=== PATIENT | male | born 1945 ===

== ENCOUNTER 2019-07-24 09:43 | Outpatient (CLI) | payer OTHER ==
[~2019-07-24 09:43] MED LIST: CATAFLAM50 MG PO; CELEBREX200MG PO; NABUMETONE750 MG PO; NORFLEX100MG PO
== END 2019-07-24 12:37 | disposition home or self-care (01) ==
LOC: TOM 09:43
DX: M54.5 Low back pain (principal); M54.16 Radiculopathy, lumbar region; N18.3 Chronic kidney disease, stage 3 (moderate); I11.0 Hypertensive heart disease with heart failure; E11.9 Type 2 diabetes mellitus without complications; D64.89 Other specified anemias
CPT/HCPCS: 72148

== ENCOUNTER 2019-12-10 14:22 | Outpatient (CLI) | payer OTHER | END 2019-12-10 14:38 | disposition home or self-care (01) | LOC: TOM 14:22 | PROVIDERS: ATTEND Internal Medicine Hepatology | DX: R10.32 Left lower quadrant pain (principal) ==

== ENCOUNTER → 2020-10-10 | Outpatient (CLI) | payer OTHER ==
[~2020-10-10] MED LIST changes: +ROBAXIN-750750 MG PO; +VOLTAREN ARTHRI20 GM TOP
== END | disposition home or self-care (01) ==
LOC: TOM 12:49
PROVIDERS: ATTEND Internal Medicine Hepatology
DX: K44.9 Diaphragmatic hernia without obstruction or gangrene (principal); R10.32 Left lower quadrant pain

== ENCOUNTER 2021-03-30 10:21 | Outpatient (CLI) | payer OTHER | END 2021-03-30 10:31 | disposition home or self-care (01) | LOC: RAD 10:21 | PROVIDERS: ATTEND Orthopaedic Surgery Adult Reconstructive Orthopaedic Surgery | DX: M25.562 Pain in left knee (principal); M25.561 Pain in right knee; Z96.653 Presence of artificial knee joint, bilateral ==

== ENCOUNTER 2021-10-13 10:44 | Outpatient (CLI) | payer OTHER ==
[~2021-10-13 10:44] MED LIST changes: +DICLOFENAC POTA50 MG PO; +GABAPENTIN300 M2 PO; +MEDROLPACK PO
[2021-11-13] MEDS ORDERED: VOLTAREN ARTHRI20 GM TOP (09:50)
[2021-11-13] MEDS ORDERED: CELEBREX200MG PO (09:55)
== END 2021-10-13 10:56 | disposition home or self-care (01) ==
LOC: RAD 10:44
PROVIDERS: ATTEND Orthopaedic Surgery Adult Reconstructive Orthopaedic Surgery
DX: Z96.653 Presence of artificial knee joint, bilateral (principal); R22.41 Localized swelling, mass and lump, right lower limb

== ENCOUNTER 2021-12-22 10:28 | Outpatient (CLI) | payer OTHER | END 2021-12-22 10:40 | disposition home or self-care (01) | LOC: MRI 10:28 | PROVIDERS: ATTEND Internal Medicine | DX: M51.36 Other intervertebral disc degeneration, lumbar region (principal); M54.50 Low back pain, unspecified; M51.16 Intervertebral disc disorders with radiculopathy, lumbar region | CPT/HCPCS: 72148 ==

== ENCOUNTER 2021-12-26 08:32 | Outpatient (CLI) | payer OTHER | END 2021-12-26 08:40 | disposition home or self-care (01) | LOC: TOM 08:32 | PROVIDERS: ATTEND Internal Medicine | DX: K57.92 Diverticulitis of intestine, part unspecified, without perforation or abscess without bleeding (principal) | CPT/HCPCS: 74177; Q9965 ==

== ENCOUNTER 2022-04-17 15:27 | Outpatient (CLI) | payer OTHER ==
[~2022-04-17 15:27] MED LIST changes: +ACETAMINOPHEN-1 EAC2 PO
== END 2022-04-18 12:08 | disposition home or self-care (01) ==
LOC: TOM 15:27
PROVIDERS: ATTEND Internal Medicine
DX: K57.92 Diverticulitis of intestine, part unspecified, without perforation or abscess without bleeding (principal)